=== PATIENT | male | born 1960 | race Caucasian/White ===

== ENCOUNTER 2017-05-22 19:22 | Emergency (ER) | payer OTHER ==
[~2017-05-22] VITALS: Ht 177.8 cm; Wt 97.9 kg
[~2017-05-22 19:22] MED LIST: CEPH500C3 PO; MONT10TA2 PO; OXYC-360 PO; PRED20 PO; RANI150 PO
[2017-05-22 19:58] VITALS: BP 129/67; PULSE 96; RESP 18; TEMP 100.5
--- NOTE | 2017-05-22 20:10 | PD ---
HPI Chief Complaint: Cold / Flu Symptoms Time Seen by Provider: 20:09 Travel History International Travel<30 days: No Contact w/Intl Traveler<30days: No Traveled to known affect area: No History of Present Illness HPI 56-year-old male came to the emergency room with history of fever, body ache, headache since this morning. Patient has been taking Tylenol at home. He last took at 6 PM 2 extra strength Tylenol. He said that he did not take his flu shot last year no known sick contacts. Patient had a temperature of 100.5 in triage. The vital signs otherwise stable. No neck pain or stiffness. No photophobia. PFSH Past Medical History Narrative Medical List of his past medical, surgical, social and family history is reviewed from the nursing note. Arthritis: Yes (HAND) Asthma: No Blood Disorders: No Anxiety: No Depression: No Cancer: No Cardiovascular Problems: Yes (Afib ) Chemotherapy: No COPD: No Diabetes: No Endocrine: No Glaucoma: No Genitourinary: No Immune Disorder: No Musculoskeletal: Yes Neurologic: No Psychiatric: No Reproductive: No Respiratory: Yes Radiation Therapy: No Sickle Cell Disease: No Sleep Apnea: No Thyroid Disease: No Past Surgical History Abdominal Surgery: Yes (HERNIA REPAIR) AICD: No Arteriovenous Shunt: No Cardiac Surgery: No Ear Surgery: No Endocrine Surgery: No Eye Surgery: No Genitourinary Surgery: No Gynecologic Surgery: No Insulin Pump: No Joint Replacement: No Neurologic Surgery: Yes (CERVICAL FUSION) Oral Surgery: No Pacemaker: No Thoracic Surgery: No Social History Alcohol Use: No Tobacco Use: No Substance Use: No Allergies-Medications (Allergen,Severity, Reaction): Coded Allergies: aspirin (Verified Allergy, Mild, 05/22/17) Uncoded Allergies: UNKNOWN FOOD ALLERGIES (Allergy, Mild, 08/13/09) Comments List of his allergies reviewed from the nursing note. Reported Meds & Prescriptions Reported Meds & Active Scripts Active Reported Percocet (Oxycodone/Acetaminophen) 5 Mg/325 Mg Tab 1 Tab PO TIDPRN FOR PAIN Zantac (Ranitidine HCl) 150 Mg Tab 150 Mg PO BID Keflex (Cephalexin Monohydrate) 500 Mg Cap 500 Mg PO QID 7 Days Deltasone (Prednisone) 20 Mg Tab 10 Mg PO DAILY 4 Days Deltasone (Prednisone) 20 Mg Tab 20 Mg PO DAILY 4 Days Deltasone (Prednisone) 20 Mg Tab 30 Mg PO DAILY 4 Days Singulair (Montelukast Sodium) 10 Mg Tab 10 Mg PO HS Narrative Medication List of his home medications reviewed from the nursing note. Review of Systems Except as stated in HPI: all other systems reviewed are Neg General / Constitutional: Positive: Fever Musculoskeletal: Positive: Myalgias Neurologic: Positive: Headache Physical Exam Narrative GENERAL: Awake, alert, no obvious distress SKIN: Focused skin assessment warm/dry. HEAD: Atraumatic. Normocephalic. EYES: Pupils equal and round. No scleral icterus. No injection or drainage. ENT: No nasal bleeding or discharge. Mucous membranes pink and moist. NECK: Trachea midline. No JVD. Neck is supple CARDIOVASCULAR: Regular rate and rhythm. No murmur appreciated. RESPIRATORY: No accessory muscle use. Clear to auscultation. Breath sounds equal bilaterally. GASTROINTESTINAL: Abdomen soft, non-tender, nondistended. Hepatic and splenic margins not palpable. MUSCULOSKELETAL: No obvious deformities. No clubbing. No cyanosis. No edema. NEUROLOGICAL: Awake and alert. No obvious cranial nerve deficits. Motor grossly within normal limits. Normal speech. PSYCHIATRIC: Appropriate mood and affect; insight and judgment normal. Data Data Last Documented VS Vital Signs Date Time Temp Pulse Resp B/P (MAP) Pulse Ox O2 Delivery O2 Flow Rate FiO2 05/22/17 20:25 Room Air 05/22/17 19:58 100.5 96 18 129/67 (87) Orders Orders Influenzae A/B Antigen (05/22/17 20:15) Chest, Pa & Lat (05/22/17 ) Urinalysis - C+S If Indicated (05/22/17 20:40) Ed Discharge Order (05/22/17 21:39) Labs Laboratory Tests Test 05/22/17 20:48 Urine Color YELLOW Urine Turbidity CLEAR Urine pH 6.0 Urine Specific Kimberly 1.030 Urine Protein NEG mg/dL Urine Glucose (UA) NEG mg/dL Urine Ketones NEG mg/dL Urine Occult Blood NEG Urine Nitrite NEG Urine Bilirubin NEG Urine Leukocyte Esterase NEG Urine RBC 0-2 /hpf Urine WBC 0-2 /hpf Urine Squamous Epithelial Cells 0-5 /hpf Urine Bacteria NONE /hpf Microscopic Urinalysis Comment CULT NOT INDICATED MDM Medical Decision Making Medical Screen Exam Complete: Yes Emergency Medical Condition: Yes Medical Record Reviewed: Yes Differential Diagnosis Influenza, viral illness Narrative Course 11:42 PM rapid influenza was negative. A UA and chest x-ray was ordered which were within normal limit as well. Patient will be discharged home with instructions. Procedures EKG Prior to Arrival: No Diagnosis Primary Impression: Viral illness Additional Impression: Fever Qualified Codes: R50.9 - Fever, unspecified Referrals: Primary Care Physician Additional Instructions: Please return to the ER if condition worsens or new other new concerns. Take Tylenol every 6 hours for fever control. Drink lots of fluid, warm tea with honey and lemon would help. Follow-up with your primary care Med/Other Pt SpecificInfo: No Change to Meds Disposition: 01 DISCHARGE HOME Condition: Stable Dick Muhammad MD May 22, 2017 20:10
[2017-05-22 20:52] LABS: BILIRUBIN, URINE NEG (NEG); BLOOD, URINE NEG (NEG); GLUCOSE,URINE NEG (NEG); KETONE, URINE NEG (NEG); NITRITE,URINE NEG (NEG); URINE LEUKOCYTE ESTERASE NEG (NEG)
[2017-05-22 20:56] LABS: RBC, URINE 0-2 /hpf (0-3); SQUAMOUS EPITHELIAL CELL URINE 0-5 /hpf (0-5); URINE COLOR YELLOW (YELLW/STRAW); WBC, URINE 0-2 /hpf (0-5)
--- NOTE | 2017-05-22 21:26 | RADRPT ---
EXAM DATE/TIME: 05/22/2017 20:53 [facility] COMPARISON: No previous studies available for comparison. INDICATIONS : Cough. MEDICAL HISTORY : None. SURGICAL HISTORY : None. ENCOUNTER: Initial ACUITY: 1 day PAIN SCORE: 0/10 LOCATION: Bilateral chest FINDINGS: PA and lateral views of the chest demonstrate the lungs to be symmetrically aerated without evidence of mass, infiltrate or effusion. The cardiomediastinal contours are unremarkable. Osseous structure s are intact. CONCLUSION: 1. No active disease. Samy Chowdhury MD on May 22, 2017 at 21:21 Board Certified Radiologist. This report was verified electronically.
== END 2017-05-22 21:57 | disposition home or self-care (01) ==
LOC: PHED 19:22
DX: B34.9 Viral infection, unspecified (principal); R50.9 Fever, unspecified; I48.91 Unspecified atrial fibrillation; Z88.8 Allergy status to other drugs, medicaments and biological substances; Z79.899 Other long term (current) drug therapy
CPT/HCPCS: 71046; 81001; 87804; 99284